=== PATIENT | female | born 1955 | race Hispanic/Latino ===

== ENCOUNTER 2017-09-14 22:11 | Emergency (ER) | payer OTHER ==
[2017-09-14 22:41] LABS: BASOPHILS % (AUTO) 0.9 % (0.0-5.0); EOSINOPHILS % (AUTO) 1.2 % (0.0-8.0); HEMATOCRIT 35.7 % (36-48); LYMPHOCYTES % (AUTO) 29.4 % (21.0-51.0); MEAN CORPUSCULAR HEMOGLOBIN 30.7 pg (27.0-33.0); MEAN CORPUSCULAR HGB CONC 34.7 g/dL (32.0-36.0); MEAN CORPUSCULAR VOLUME 88.5 fL (79-99); MONOCYTES % (AUTO) 8.4 % (3.0-13.0); NEUTROPHILS % (AUTO) 60.1 % (40.0-77.0); PLATELET COUNT (AUTO) 240 K/uL (130-400); RED BLOOD CELL COUNT(AUTO) 4.04 MIL/uL (4.00-5.50); WHITE BLOOD COUNT (AUTO) 5.3 K/uL (4.8-10.8)
[2017-09-14] MEDS ORDERED: KETOROLAC TROMETHAMINE 30MG/ML ONE (22:53)
[2017-09-14 22:55] LABS: CREATININE 0.9 mg/dL (0.5-1.5)
== END 2017-09-15 00:24 | disposition home or self-care (01) ==
LOC: EDH 22:11
DX: M75.92 Shoulder lesion, unspecified, left shoulder (principal); E11.9 Type 2 diabetes mellitus without complications; Z98.890 Other specified postprocedural states
CPT/HCPCS: 36415; 80048; 84484; 85025; 93005; 96374; 99285; J1885

== ENCOUNTER 2018-09-01 13:28 | Emergency (ER) | payer OTHER, MEDICARE ==
[2018-09-01] MEDS ORDERED: IBUPROFEN 600 MG TABLET ONE (15:34)
== END 2018-09-01 15:50 | disposition home or self-care (01) ==
LOC: EDH 13:28
DX: S20.211A Contusion of right front wall of thorax, initial encounter (principal); E11.9 Type 2 diabetes mellitus without complications; Z98.890 Other specified postprocedural states; W18.2XXA Fall in (into) shower or empty bathtub, initial encounter; Y93.89 Activity, other specified; Y92.89 Other specified places as the place of occurrence of the external cause; Y99.8 Other external cause status
CPT/HCPCS: 71045; 71100; 74176; 93005

== ENCOUNTER 2019-06-12 17:31 | Emergency (ER) | payer BC, MEDICARE, OTHER ==
[2019-06-12 18:06] LABS: APPEARANCE,URINE Clear (CLEAR); BILIRUBIN,URINE Negative (NEGATIVE); COLOR,URINE Yellow (YELLOW); GLUCOSE, URINE (UA) >=1000 mg/dL (NEGATIVE); KETONES,URINE Negative (NEGATIVE); LEUKOCYTE ESTERASE ,URINE Negative (NEGATIVE); NITRATE,URINE Negative (NEGATIVE); OCCULT BLOOD,URINE Negative (NEGATIVE); PROTEIN,URINE Negative (NEGATIVE); UROBILINOGEN,URINE 0.2 mg/dL (0.2-1.0)
[2019-06-12 18:19] LABS: BACTERIA,URINE Rare /HPF (None Seen); RBC,URINE 0-1 /HPF (0-1); WBC,URINE 0-1 /HPF (0-1)
[2019-06-12 19:03] LABS: BASOPHILS % (AUTO) 0.5 % (0.0-5.0); EOSINOPHILS % (AUTO) 0.2 % (0.0-8.0); HEMATOCRIT 36.6 % (36-48); LYMPHOCYTES % (AUTO) 19.8 % (21.0-51.0); MEAN CORPUSCULAR HGB CONC 34.7 g/dL (32.0-36.0); MEAN CORPUSCULAR VOLUME 89.4 fL (79-99); MONOCYTES % (AUTO) 10.1 % (3.0-13.0); NEUTROPHILS % (AUTO) 69.4 % (40.0-77.0); PLATELET COUNT (AUTO) 301 K/uL (130-400); RED BLOOD CELL COUNT(AUTO) 4.09 MIL/uL (4.00-5.50); RED CELL DISTRIBUTION WIDTH 12.7 % (11.0-15.5); WHITE BLOOD COUNT (AUTO) 5.9 K/uL (4.8-10.8)
[2019-06-12] MEDS ORDERED: HYOSCYAMINE SULFATE 0.125 MG TAB.SUBL SL ONE (19:07)
[2019-06-12] MEDS ORDERED: MORPHINE SULFATE 4 MG/1ML SYG ONE (19:07)
[2019-06-12] MEDS ORDERED: ONDANSETRON HCL 4 MG/2 ML VIAL ONE (19:07)
[2019-06-12] MEDS ORDERED: SODIUM CHLORIDE 0.9% 1000ML 1,000 ML IV ONE (19:08)
[2019-06-12 19:14] LABS: CREATININE 0.9 mg/dL (0.5-1.5); POTASSIUM 3.9 mmol/L (3.5-5.1)
[2019-06-12 19:18] LABS: ALBUMIN 3.4 g/dL (3.5-5.0); BILIRUBIN,DIRECT 0.1 mg/dL (0.0-0.3); BILIRUBIN,TOTAL 0.4 mg/dL (0.2-1.0); TOTAL PROTEIN, SERUM 6.9 g/dL (6.0-8.3)
== END 2019-06-12 21:22 | disposition home or self-care (01) ==
LOC: EDH 17:31
DX: A09 Infectious gastroenteritis and colitis, unspecified (principal); R11.10 Vomiting, unspecified; E11.9 Type 2 diabetes mellitus without complications; Z90.710 Acquired absence of both cervix and uterus
CPT/HCPCS: 36415; 80048; 80076; 81001; 83690; 85025; 96361; 96374; 96375; 99285; J2270; J2405; J7030

== ENCOUNTER 2020-07-18 15:42 | Emergency (ER) | payer MEDICARE ==
[2020-07-18 16:58] LABS: BASOPHILS % (AUTO) 0.5 % (0.0-5.0); EOSINOPHILS % (AUTO) 0.3 % (0.0-8.0); HEMATOCRIT 37.9 % (36-48); LYMPHOCYTES % (AUTO) 20.4 % (21.0-51.0); MEAN CORPUSCULAR HEMOGLOBIN 30.5 pg (27.0-33.0); MEAN CORPUSCULAR HGB CONC 34.6 g/dL (32.0-36.0); MEAN CORPUSCULAR VOLUME 88.1 fL (79-99); MONOCYTES % (AUTO) 6.5 % (3.0-13.0); PLATELET COUNT (AUTO) 321 K/uL (130-400); RED CELL DISTRIBUTION WIDTH 12.2 % (11.0-15.5); WHITE BLOOD COUNT (AUTO) 7.6 K/uL (4.8-10.8)
[2020-07-18 17:03] LABS: CREATININE 1.1 mg/dL (0.5-1.5)
[2020-07-18 17:08] LABS: ALBUMIN 3.7 g/dL (3.5-5.0); BILIRUBIN,TOTAL 0.8 mg/dL (0.2-1.0); TOTAL PROTEIN, SERUM 7.6 g/dL (6.0-8.3)
[2020-07-18] MEDS ORDERED: KETOROLAC TROMETHAMINE 30MG/ML ONE (17:23)
== END 2020-07-18 19:01 | disposition home or self-care (01) ==
LOC: EDH 15:42
DX: S09.90XA Unspecified injury of head, initial encounter (principal); E11.9 Type 2 diabetes mellitus without complications; Z90.49 Acquired absence of other specified parts of digestive tract; Z90.710 Acquired absence of both cervix and uterus; W18.39XA Other fall on same level, initial encounter; Y93.89 Activity, other specified; Y92.89 Other specified places as the place of occurrence of the external cause; Y99.8 Other external cause status
CPT/HCPCS: 36415; 70450; 72125; 80053; 85025; 93005; 96374; 99285; J1885

== ENCOUNTER 2020-11-12 16:59 | Emergency (ER) | payer MEDICARE ==
[2020-11-12 17:51] LABS: BASOPHILS % (AUTO) 0.4 % (0.0-5.0); EOSINOPHILS % (AUTO) 1.1 % (0.0-8.0); HEMATOCRIT 38.6 % (36-48); LYMPHOCYTES % (AUTO) 24.7 % (21.0-51.0); MEAN CORPUSCULAR HEMOGLOBIN 30.6 pg (27.0-33.0); MEAN CORPUSCULAR HGB CONC 34.2 g/dL (32.0-36.0); MEAN CORPUSCULAR VOLUME 89.6 fL (79-99); MONOCYTES % (AUTO) 6.5 % (3.0-13.0); NEUTROPHILS % (AUTO) 67.1 % (40.0-77.0); PLATELET COUNT (AUTO) 278 K/uL (130-400); RED BLOOD CELL COUNT(AUTO) 4.31 MIL/uL (4.00-5.50); RED CELL DISTRIBUTION WIDTH 11.9 % (11.0-15.5); WHITE BLOOD COUNT (AUTO) 5.3 K/uL (4.8-10.8)
[2020-11-12] MEDS ORDERED: ONDANSETRON 4MG INJ ONE (17:53)
[2020-11-12 18:03] LABS: CREATININE 0.8 mg/dL (0.5-1.5); POTASSIUM 3.9 mmol/L (3.5-5.1)
[2020-11-12 18:05] LABS: INR 0.96 (0.85-1.15); PROTHROMBIN TIME 10.5 SEC (9.6-11.6)
[2020-11-12 18:07] LABS: PARTIAL THROMBOPLASTIN TIME 24.8 SEC (26.3-35.5)
[2020-11-12 18:08] LABS: ALBUMIN 3.7 g/dL (3.5-5.0); BILIRUBIN,TOTAL 0.8 mg/dL (0.2-1.0); TOTAL PROTEIN, SERUM 7.3 g/dL (6.0-8.3)
[2020-11-12] MEDS ORDERED: MECLIZINE HCL 25 MG TABLET ONE (18:09)
[2020-11-12] MEDS ORDERED: SOLU-MEDROL 125MG VIAL ONE (18:16)
== END 2020-11-12 19:36 | disposition home or self-care (01) ==
LOC: EDH 16:59
DX: H81.10 Benign paroxysmal vertigo, unspecified ear (principal); E11.9 Type 2 diabetes mellitus without complications; Z90.49 Acquired absence of other specified parts of digestive tract; Z90.710 Acquired absence of both cervix and uterus; Z72.0 Tobacco use
CPT/HCPCS: 36415; 70450; 80053; 84484; 85025; 85610; 85730; 96374; 96375; 99284; J2405; J2930

== ENCOUNTER 2021-12-09 08:24 | Emergency (ER) | payer MEDICARE, OTHER ==
[~2021-12-09] VITALS: Ht 152.4 cm; Wt 73.5 kg
[2021-12-09] MEDS ORDERED: LACTATED RINGERS 1000ML 1,000 ML IV ONE (09:00)
[2021-12-09 09:14] LABS: BASOPHILS % (AUTO) 0.6 % (0.0-5.0); EOSINOPHILS % (AUTO) 2.1 % (0.0-8.0); HEMATOCRIT 39.2 % (36-48); LYMPHOCYTES % (AUTO) 32.7 % (21.0-51.0); MEAN CORPUSCULAR HEMOGLOBIN 29.5 pg (27.0-33.0); MEAN CORPUSCULAR HGB CONC 33.7 g/dL (32.0-36.0); MEAN CORPUSCULAR VOLUME 87.5 fL (79-99); MONOCYTES % (AUTO) 9.4 % (3.0-13.0); NEUTROPHILS % (AUTO) 54.9 % (40.0-77.0); PLATELET COUNT (AUTO) 260 K/uL (130-400); RED BLOOD CELL COUNT(AUTO) 4.48 MIL/uL (4.00-5.50); RED CELL DISTRIBUTION WIDTH 11.9 % (11.0-15.5); WHITE BLOOD COUNT (AUTO) 6.2 K/uL (4.8-10.8)
[2021-12-09 09:24] LABS: CREATININE 0.7 mg/dL (0.5-1.5); POTASSIUM 3.7 mmol/L (3.5-5.1)
[2021-12-09 09:28] LABS: ALBUMIN 3.8 g/dL (3.5-5.0); BILIRUBIN,TOTAL 0.9 mg/dL (0.2-1.0); TOTAL PROTEIN, SERUM 7.4 g/dL (6.0-8.3)
[2021-12-09 09:31] LABS: APPEARANCE,URINE Clear (CLEAR); BILIRUBIN,URINE Negative (NEGATIVE); COLOR,URINE Yellow (YELLOW); GLUCOSE, URINE (UA) 250 mg/dL (NEGATIVE); KETONES,URINE Negative (NEGATIVE); LEUKOCYTE ESTERASE ,URINE Small (NEGATIVE); NITRATE,URINE Positive (NEGATIVE); OCCULT BLOOD,URINE Negative (NEGATIVE); PH,URINE 5.5 (5.0-8.0); PROTEIN,URINE Negative (NEGATIVE); UROBILINOGEN,URINE 0.2 mg/dL (0.2-1.0)
[2021-12-09 10:09] LABS: BACTERIA,URINE Many /HPF (None Seen); RBC,URINE 0-1 /HPF (0-1); SQUAMOUS EPITHELIAL CELL,UR Rare /HPF (0-2); WBC,URINE 0-1 /HPF (0-1)
[2021-12-09] MEDS ORDERED: KETOROLAC 30MG VIAL (30MG/ML) IVP ONE (10:30)
[2021-12-09] MEDS ORDERED: IOHEXOL-350 75 ML VIAL IV ONE (11:57)
[2021-12-09] MEDS ORDERED: CEPH500B PO (12:43)
[2021-12-09] MEDS ORDERED: FAMO20TA8 PO (12:43)
[2021-12-09 13:00] VITALS: BP 132/82
== END 2021-12-09 13:07 | disposition home or self-care (01) ==
LOC: EDH 08:24
DX: N39.0 Urinary tract infection, site not specified (principal); E11.9 Type 2 diabetes mellitus without complications; E86.0 Dehydration
CPT/HCPCS: 36415; 74177; 76705; 80053; 81001; 82150; 83690; 85025; 87077; 87088; 87186; 96361; 96374; 99285; J1885; J7120; Q9967

== ENCOUNTER 2022-04-14 03:25 | Observation (INO) | payer OTHER ==
[~2022-04-14] VITALS: Ht 154.9 cm; Wt 73.9 kg
[~2022-04-14 03:25] MED LIST: CEPH500B PO; FAMO20TA8 PO
[2022-04-14 03:37] LABS: BASOPHILS % (AUTO) 0.5 % (0.0-5.0); EOSINOPHILS % (AUTO) 2.5 % (0.0-8.0); HEMATOCRIT 40.9 % (36-48); LYMPHOCYTES % (AUTO) 35.3 % (21.0-51.0); MEAN CORPUSCULAR VOLUME 88.1 fL (79-99); MONOCYTES % (AUTO) 8.3 % (3.0-13.0); NEUTROPHILS % (AUTO) 52.9 % (40.0-77.0); PLATELET COUNT (AUTO) 282 K/uL (130-400); RED BLOOD CELL COUNT(AUTO) 4.64 MIL/uL (4.00-5.50); RED CELL DISTRIBUTION WIDTH 12.2 % (11.0-15.5); WHITE BLOOD COUNT (AUTO) 6.5 K/uL (4.8-10.8)
[2022-04-14 03:56] LABS: CREATININE 0.9 mg/dL (0.5-1.5)
[2022-04-14 04:11] LABS: ALBUMIN 4.1 g/dL (3.5-5.0)
[2022-04-14] MEDS ORDERED: MAG/ALUM/SIMETH 30 ML UDCUP ONE (04:12)
[2022-04-14] MEDS ORDERED: KCL 20 MEQ ERTAB PO PRN (06:30)
[2022-04-14] MEDS ORDERED: POTASSIUM CHLORIDE 10% ELIXIR 20 MEQ/15 ML UDCUP PO PRN (06:30)
[2022-04-14] MEDS ORDERED: CLONIDINE HCL 0.1 MG TABLET PO PRN (06:30)
[2022-04-14] MEDS ORDERED: POTASSIUM CHLORIDE 20MEQ/100ML 100 ML IV PRN (06:30)
[2022-04-14] MEDS ORDERED: MAGNESIUM 2GM PREMIX 50ML 50 ML IV PRN (06:30)
[2022-04-14] MEDS ORDERED: LACTULOSE 20 GM/30 ML UDCUP PO PRN (06:30)
[2022-04-14] MEDS ORDERED: DEXTROSE 50%-WATER 50 ML DISP.SYRIN IV PRN (06:30)
[2022-04-14] MEDS ORDERED: DOCUSATE SODIUM 100 MG CAP PO PRN (06:30)
[2022-04-14] MEDS ORDERED: TEMAZEPAM 15 MG CAPSULE PO PRN (06:30)
[2022-04-14] MEDS ORDERED: ONDANSETRON 4MG INJ IVP PRN (06:30)
[2022-04-14] MEDS ORDERED: GLUCAGON 1MG KIT 1 MG ML IM PRN (06:30)
[2022-04-14] MEDS ORDERED: LABETALOL 20MG SYG IV PRN (06:30)
[2022-04-14] MEDS ORDERED: ACETAMINOPHEN 650 MG SUPPOSITORY RC PRN (06:30)
[2022-04-14] MEDS ORDERED: NITROGLYCERIN 0.4 MG SL TAB SL PRN (06:30)
[2022-04-14] MEDS: INSULIN HUMULIN R 100 UNIT/ML 3ML SQ SCH ×4 (07:30→20:09)
[2022-04-14] MEDS ORDERED: METF500S9 PO (08:16)
[2022-04-14] MEDS ORDERED: GLIM2TAB30 PO (08:16)
[2022-04-14] MEDS: ASPIRIN 81MG CHEW TAB PO SCH (08:25)
[2022-04-14] MEDS: ENOXAPARIN SODIUM 40 MG/0.4 ML SYRINGE SQ SCH (08:25)
[2022-04-14 09:27] VITALS: BP 127/80
[2022-04-14] MEDS: ACETAMINOPHEN 325 MG TAB PO PRN ×2 (10:54→20:16)
[2022-04-14 12:59] VITALS: BP 153/69
[2022-04-14 16:50] VITALS: BP 106/65
[2022-04-14 19:24] VITALS: BP 112/63
[2022-04-14] MEDS: FAMOTIDINE 20MG VIAL IV SCH (20:17)
[2022-04-14] MEDS ORDERED: ATORVASTATIN 40 MG TABLET PO SCH (21:00)
[2022-04-14] MEDS ORDERED: LEVOFLOXACIN 500 MG/D5W 100 ML 100 ML IV SCH (23:30)
[2022-04-14] MEDS ORDERED: PREDNISONE 20 MG TABLET PO ONE (23:30)
[2022-04-14 23:31] VITALS: BP 116/61
[2022-04-15 01:49] LABS: APPEARANCE,URINE CLEAR (CLEAR); BILIRUBIN,URINE NEGATIVE (NEGATIVE); COLOR,URINE YELLOW (YELLOW); GLUCOSE, URINE (UA) NEGATIVE (NEGATIVE); KETONES,URINE NEGATIVE (NEGATIVE); LEUKOCYTE ESTERASE ,URINE NEGATIVE (NEGATIVE); NITRATE,URINE NEGATIVE (NEGATIVE); OCCULT BLOOD,URINE NEGATIVE (NEGATIVE); PH,URINE 6.5 (5.0-8.0); PROTEIN,URINE NEGATIVE (NEGATIVE); UROBILINOGEN,URINE 0.2 mg/dL (0.2-1.0)
[2022-04-15 03:26] VITALS: BP 133/73
[2022-04-15 04:43] LABS: BASOPHILS % (AUTO) 0.3 % (0.0-5.0); EOSINOPHILS % (AUTO) 0.3 % (0.0-8.0); HEMATOCRIT 37.1 % (36-48); LYMPHOCYTES % (AUTO) 11.3 % (21.0-51.0); MEAN CORPUSCULAR HEMOGLOBIN 30.3 pg (27.0-33.0); MEAN CORPUSCULAR HGB CONC 34.2 g/dL (32.0-36.0); MEAN CORPUSCULAR VOLUME 88.5 fL (79-99); MONOCYTES % (AUTO) 2.7 % (3.0-13.0); NEUTROPHILS % (AUTO) 85.1 % (40.0-77.0); PLATELET COUNT (AUTO) 264 K/uL (130-400); RED BLOOD CELL COUNT(AUTO) 4.19 MIL/uL (4.00-5.50); RED CELL DISTRIBUTION WIDTH 12.2 % (11.0-15.5); WHITE BLOOD COUNT (AUTO) 6.4 K/uL (4.8-10.8)
[2022-04-15 04:55] LABS: POTASSIUM 4.8 mmol/L (3.5-5.1)
[2022-04-15] MEDS: INSULIN HUMULIN R 100 UNIT/ML 3ML SQ SCH ×2 (06:10→12:22)
[2022-04-15 07:38] LABS: ABG BASE EXCESS -1.6 mmol/L (-2.0-3.0); ABG HCO3 22.2 mmol/L (21.0-28.0); ABG OXYGEN SATURATION 96.6 % (95.0-99.0); ABG PCO2 35 mmHg (32-45)
[2022-04-15 08:08] VITALS: BP 139/65
[2022-04-15] MEDS: ASPIRIN 81MG CHEW TAB PO SCH ×2 (09:00→10:06)
[2022-04-15] MEDS ORDERED: PREDNISONE 20 MG TABLET PO SCH (09:00)
[2022-04-15] MEDS: ENOXAPARIN SODIUM 40 MG/0.4 ML SYRINGE SQ SCH ×2 (09:00→10:06)
[2022-04-15] MEDS: FAMOTIDINE 20MG VIAL IV SCH ×2 (09:00→10:06)
[2022-04-15] MEDS ORDERED: ATORVASTATIN 20 MG TABLET PO SCH (11:30)
[2022-04-15 11:47] VITALS: BP 132/67
[2022-04-15] MEDS ORDERED: LEVO-70 PO (12:08)
[2022-04-15] MEDS ORDERED: PRED20TA3 PO (12:08)
[2022-04-15] MEDS ORDERED: ASPI-1005 PO (12:08)
[2022-04-15] MEDS ORDERED: ATOR40TA69 PO (12:08)
[2022-04-15] MEDS ORDERED: METFORMIN HCL 500 MG TABLET PO SCH (17:00)
[2022-04-16] MEDS ORDERED: GLIMEPIRIDE 2 MG TABLET PO SCH (08:00)
[2022-04-16] MEDS ORDERED: ATORVASTATIN 20 MG TABLET PO SCH (09:00)
== END 2022-04-15 13:30 | disposition home or self-care (01) ==
LOC: EDH 03:25 → EDHIP 05:49 → 2AH 08:40
PROVIDERS: ADMIT Internal Medicine; ATTEND Internal Medicine
DX: I20.0 Unstable angina (principal); Z20.822 Contact with and (suspected) exposure to COVID-19; E11.65 Type 2 diabetes mellitus with hyperglycemia; E78.5 Hyperlipidemia, unspecified; F17.200 Nicotine dependence, unspecified, uncomplicated; Q21.1 Atrial septal defect; Z79.899 Other long term (current) drug therapy
CPT/HCPCS: 96372 ×2; 96375; 99285; 84484 ×2; 80053; 83880; 85025 ×2; 85378; 87804 ×2; 82948 ×6; 36415 ×2; 87635 ×2; 71045; 93306; 93356; 93005 ×2; 96365; 83036; 80061; 80048; 82803; 81003; 71250; 36600; G0378 ×30; J3490 ×2; J1650 ×2; J1815 ×3; J1956; 96374

== ENCOUNTER → 2022-10-28 | Outpatient (CLI) | payer OTHER ==
[~2022-10-28] MED LIST changes: +ASPI-1005 PO; +ATOR40TA69 PO; -CEPH500B PO; -FAMO20TA8 PO; +GLIM2TAB30 PO; +LEVO-70 PO; +METF500S9 PO; +PRED20TA3 PO
== END | disposition home or self-care (01) ==
LOC: RAH 12:45
PROVIDERS: ATTEND Obstetrics & Gynecology
DX: N64.4 Mastodynia (principal)
CPT/HCPCS: 77066

== ENCOUNTER 2023-03-15 10:55 | Emergency (ER) | payer OTHER ==
[~2023-03-15] VITALS: Ht 152.4 cm; Wt 68.9 kg
[2023-03-15 10:59] VITALS: BP 146/67
== END 2023-03-15 15:47 | disposition left against medical advice (07) ==
LOC: EDH 10:55
DX: M79.605 Pain in left leg (principal); Z53.21 Procedure and treatment not carried out due to patient leaving prior to being seen by health care provider
CPT/HCPCS: 99281

== ENCOUNTER 2023-08-24 19:56 | Emergency (ER) | payer OTHER ==
[~2023-08-24] VITALS: Ht 154.9 cm; Wt 71.2 kg
[2023-08-24 21:17] LABS: BASOPHILS # (AUTO) 0.02 K/uL (0.00-0.20); BASOPHILS % (AUTO) 0.4 % (0.0-5.0); EOSINOPHILS # (AUTO) 0.04 K/uL (0.00-0.70); EOSINOPHILS % (AUTO) 0.7 % (0.0-8.0); HEMATOCRIT 40.2 % (36-48); IMMATURE GRANULOCYTE ABSOLUTE 0.02 K/uL (0-1); LYMPHOCYTES # (AUTO) 1.4 K/uL (1.0-4.8); LYMPHOCYTES % (AUTO) 24.9 % (21.0-51.0); MEAN CORPUSCULAR HEMOGLOBIN 30.4 pg (27.0-33.0); MEAN CORPUSCULAR HGB CONC 33.6 g/dL (32.0-36.0); MEAN CORPUSCULAR VOLUME 90.5 fL (79-99); MONOCYTES # (AUTO) 0.6 K/uL (0.1-1.0); MONOCYTES % (AUTO) 11.6 % (3.0-13.0); NEUTROPHILS # (AUTO) 3.4 K/uL (1.8-7.7); PLATELET COUNT (AUTO) 269 K/uL (130-400); RED BLOOD CELL COUNT(AUTO) 4.44 MIL/uL (4.00-5.50); RED CELL DISTRIBUTION WIDTH 12.1 % (11.0-15.5); WHITE BLOOD COUNT (AUTO) 5.4 K/uL (4.8-10.8)
[2023-08-24 21:27] LABS: POTASSIUM 3.7 mmol/L (3.5-5.1)
[2023-08-24] MEDS ORDERED: ONDANSETRON 4MG INJ IVP ONE (21:30)
[2023-08-24] MEDS ORDERED: MORPHINE 2 MG SYG IVP ONE (21:30)
[2023-08-24 21:34] LABS: ALBUMIN 3.7 g/dL (3.5-5.0); BILIRUBIN,TOTAL 0.5 mg/dL (0.2-1.0); TOTAL PROTEIN, SERUM 7.5 g/dL (6.0-8.3)
[2023-08-24 21:58] LABS: AMYLASE 37 U/L (25-115)
[2023-08-24] MEDS ORDERED: OMEP40CA21 PO (22:26)
[2023-08-24] MEDS ORDERED: DICY20TA2 PO (22:26)
[2023-08-24] MEDS ORDERED: ONDA4TAB10 PO (22:27)
[2023-08-24 23:24] VITALS: BP 135/74; PULSE 88; RESP 20; O2SAT 99
== END 2023-08-24 23:53 | disposition home or self-care (01) ==
LOC: EDH 19:56
DX: R10.13 Epigastric pain (principal); E11.9 Type 2 diabetes mellitus without complications; E78.00 Pure hypercholesterolemia, unspecified; Z79.82 Long term (current) use of aspirin; Z79.84 Long term (current) use of oral hypoglycemic drugs; Z79.899 Other long term (current) drug therapy; Z90.710 Acquired absence of both cervix and uterus
CPT/HCPCS: 99285; 96374; 76705; 96375; 82150; 84484; 80053; 83690; 85025; 36415; 93005; J2270; J2405